=== PATIENT | female | born 1975 | race Two or more races ===

== ENCOUNTER 2025-08-28 19:11 | Emergency (ER) | payer MEDICAID ==
[~2025-08-28] VITALS: Ht 162.6 cm; Wt 72.6 kg
[2025-08-28] MEDS: ACETAMINOPHEN 500 MG TABLET PO ONE ×2 (20:00→21:19)
[2025-08-28 20:15] LABS: PLATELET COUNT (AUTO) 249 K/uL (179-408); RED BLOOD CELL COUNT(AUTO) 5.79 MIL/uL (3.63-4.92); RED CELL DISTRIBUTION WIDTH 13.1 % (12.3-17.7); WHITE BLOOD COUNT (AUTO) 12.0 K/uL (3.8-11.8)
[2025-08-28 20:29] LABS: ASPARTATE AMINOTRANSFERASE 14 U/L (15-37); CREATININE 0.6 mg/dL (0.6-1.3); SODIUM SERUM 133 mmol/L (136-145); TOTAL PROTEIN, SERUM 8.6 g/dL (6.4-8.2); UREA NITROGEN, BLOOD 11 mg/dL (7-18)
[2025-08-28 21:23] LABS: *BILIRUBIN,URIN NEGATIVE (NEGATIVE); *BLOOD, URINE 3+ (NEGATIVE); *KETONES,URINE 3+ (NEGATIVE); *UROBILINOGEN,URINE 0.2 E.U./dl (NORMAL); LEUKOCYTE ESTERASE ,URINE NEGATIVE (NEGATIVE); NITRITE, URINE NEGATIVE (NEGATIVE)
[2025-08-28 21:25] LABS: *CLARITY,URINE HAZY (CLEAR); *COLOR,URINE PINK (YELLOW); *PROTEIN,URINE 3+ (NEGATIVE); UGLUCOSE 3+ (NEGATIVE)
[2025-08-28] MEDS: IV NS 1000 ML 1,000 ML IV ONE (21:33)
[2025-08-28] MEDS: INSULIN REGULAR, HUMAN 1000 UNIT/10 ML VIAL SQ ONE (21:35)
[2025-08-28] MEDS ORDERED: ASPIRIN 81 MG TAB.CHEW PO ONE (22:30)
[2025-08-28] MEDS ORDERED: IOHEXOL 350 100 ML INFUS..BTL ONE (23:34)
[2025-08-29] MEDS: ASPIRIN 81 MG TAB.CHEW PO ONE (00:45)
[2025-08-29] MEDS ORDERED: HEPARIN/D5W DRIP 500 ML IV PRN (01:15)
[2025-08-29] MEDS ORDERED: ASPIRIN 81 MG TAB.CHEW ONE (03:11)
[2025-08-29 03:24] VITALS: BP 119/89; O2SAT 97
[2025-08-29] MEDS ORDERED: NEOMY/BACITRAC/POLYMI OINT 28.35 GM TUBE ONE (04:04)
[2025-08-29] MEDS ORDERED: ENOXAPARIN SODIUM 80 MG/0.8 ML DISP.SYRIN SQ ONE (04:19)
[2025-08-29] MEDS: DOSING PER PHARMACY-ENOXAPARIN SQ PRN (04:23)
[2025-08-29] MEDS: NEOMY/BACITRA/POLYMYXIN B OINT UD PACKET TP ONE (04:23)
== END 2025-08-29 04:15 | disposition short-term general hospital (02) ==
LOC: ER 19:24
DX: I21.4 Non-ST elevation (NSTEMI) myocardial infarction (principal); S39.012A Strain of muscle, fascia and tendon of lower back, initial encounter; S60.512A Abrasion of left hand, initial encounter; S80.02XA Contusion of left knee, initial encounter; S30.0XXA Contusion of lower back and pelvis, initial encounter; S00.93XA Contusion of unspecified part of head, initial encounter; I11.9 Hypertensive heart disease without heart failure; E11.9 Type 2 diabetes mellitus without complications; V89.2XXA Person injured in unspecified motor-vehicle accident, traffic, initial encounter; Y93.89 Activity, other specified; Y92.410 Unspecified street and highway as the place of occurrence of the external cause; Y99.9 Unspecified external cause status
CPT/HCPCS: 99291; 70450; 96360; 71045; 80076; 80048; 81001; 82009; 82962 ×3; 85025; 84484 ×3; 36415 ×2; 72100; 73120; 73560; 71275; 93005; 96372 ×2; 85730; Q9967; J1815; J7040; J1650; A4606; A4663; A9150